=== PATIENT | female | born 1975 | race Caucasian/White ===

== ENCOUNTER 2021-07-17 11:03 | Emergency (ER) | payer SELFPAY ==
[~2021-07-17] VITALS: Ht 157.5 cm; Wt 64.2 kg
[~2021-07-17 11:03] MED LIST: IBUP-1985 PO
[2021-07-17] MEDS ORDERED: iohexol 350MG/ML 100ml bottle IV ONE (13:01)
[2021-07-17] MEDS ORDERED: LORazepam 1 MG tablet PO ONE (13:05)
--- NOTE | 2021-07-17 13:14 | NUR ---
scanner broken in 13. cosign mk with EFFIE sanchez
--- NOTE | 2021-07-17 13:18 | NUR ---
vascular at bedside
[2021-07-17] MEDS ORDERED: acetaminophen 325mg tablet PO ONE (13:30)
[2021-07-17 13:40] VITALS: BP 145/98
== END 2021-07-17 16:38 | disposition home or self-care (01) ==
LOC: ER 11:04
DX: S60.222A Contusion of left hand, initial encounter (principal); M79.602 Pain in left arm; R20.0 Anesthesia of skin; G43.909 Migraine, unspecified, not intractable, without status migrainosus; Z88.1 Allergy status to other antibiotic agents; Z91.041 Radiographic dye allergy status; Z79.899 Other long term (current) drug therapy; X58.XXXA Exposure to other specified factors, initial encounter; Y93.89 Activity, other specified; Y92.89 Other specified places as the place of occurrence of the external cause; Y99.8 Other external cause status
CPT/HCPCS: 93931; 93971; 99284; Q9967